=== PATIENT | female | born 1990 | race Caucasian/White ===

== ENCOUNTER → 2022-01-15 14:58 | Outpatient (BNVA) | payer MEDICAID, SELFPAY | PROVIDERS: PCP Nurse Practitioner Family; Visit Provider Nurse Practitioner Family | DX: N39.46 Mixed incontinence (principal); N39.0 Urinary tract infection, site not specified; R30.0 Dysuria | CPT/HCPCS: 81003; 87086 ==

== ENCOUNTER → 2022-05-13 12:23 | Outpatient (BNVA) | payer MEDICAID, SELFPAY | PROVIDERS: PCP Nurse Practitioner Family; Visit Provider Internal Medicine | DX: I47.1 Supraventricular tachycardia (principal) | CPT/HCPCS: 93005; 99203; 99204 ==

== ENCOUNTER → 2022-10-15 13:17 | Outpatient (BNVA) | payer MEDICAID, SELFPAY | PROVIDERS: PCP Nurse Practitioner Family; Visit Provider Internal Medicine | DX: I47.1 Supraventricular tachycardia (principal) | CPT/HCPCS: 93270 ==

== ENCOUNTER → 2022-11-11 14:27 | Outpatient (BNVA) | payer MEDICAID, SELFPAY | PROVIDERS: PCP Nurse Practitioner Family; Visit Provider Internal Medicine | DX: I47.1 Supraventricular tachycardia (principal); Z87.891 Personal history of nicotine dependence | CPT/HCPCS: 99214 ==

== ENCOUNTER 2022-12-09 05:25 | Outpatient (CLI) | payer MEDICAID, SELFPAY ==
[2022-12-06 10:35] LABS: Basophils # 0.1 10^3/uL (0.0-0.1); Basophils % 0.8 %; Eosinophils # 0.8 10^3/uL (0.0-0.8); Eosinophils % 10.1 %; Hematocrit 46.2 % (37.0-47.0); Hemoglobin 14.9 g/dL (11.5-15.3); Lymphocytes # 2.3 10^3/uL (0.8-4.8); Lymphocytes % 30.5 %; Mean Corpuscular HGB Conc 32.3 g/dL (30.0-36.0); Mean Corpuscular Volume 90.1 fl (81-99); Mean Platelet Volume 10.4 fL (7.4-10.4); Monocytes # 0.5 10^3/uL (0.2-0.9); Monocytes % 7.3 %; Nucleated Red Blood Cells % 0 %; Platelet Count 349 10^3/cmm (130-400); Red Blood Count 5.13 10^6/uL (4.1-5.3); Red Cell Distribution Width 11.8 % (12.1-15.1); White Blood Count 7.4 10^3/uL (4.0-10.0)
[2022-12-06 10:49] LABS: INR 1.02 (0.83-1.21); Prothrombin Time (Patient) 13.7 Seconds (12.0-15.1)
[2022-12-06 10:55] LABS: Anion Gap 16.4 (5-19); Blood Urea Nitrogen 5 mg/dL (6-20); Calcium 9.3 mg/dL (8.5-10.5); Carbon Dioxide 25 mmol/L (22-29); Chloride 104 mmol/L (98-107); Glomerular Filtration Rate 83.7 mL/min (90-130); Glucose 98 mg/dL (65-115); Osmolality Calculated 289 mOsm/kg (285-295); Potassium 4.4 mmol/L (3.5-5.1); Sodium 141 mmol/L (136-145)
[2022-12-09 06:24] VITALS: BP 135/79; PULSE 86; RESP 16; TEMP 37.1; O2SAT 97; BMI 34.9
[2022-12-09] MEDS: clindamycin 150 mg Capsule PO (07:00)
--- NOTE | 2022-12-09 07:11 | W.PM.OPSUD ---
Surgery/Procedure H&P Update DATE OF PROCEDURE: December 09, 2022 DATE H&P PERFORMED: 11/11/22 H&P UPDATE INFORMATION: I have reviewed H&P completed within last 30 days, I have examined patient prior to procedure and No changes to prior documentation PREOP DIAGNOSIS: tachy arhyhtmia PLANNED PROCEDURE: Operation Date: 12/09/22 07:00 Proposed Procedures p [id number] Loop Recorder Implantation I47.1(Not Applicable) - Amita Trevino MD
--- NOTE | 2022-12-09 07:40 | P.OP_ITS ---
Operative Report Date of procedure: December 09, 2022 Pre-op diagnosis: Preop Diagnosis tachy arhyhtmia Procedure: Date of Procedure: 12/09/2022 Name of the procedure: IMPLANTABLE VP CARE MANAGEMENT INSERTION LOCATION: Cardiac Catheterization Laboratory REFERRING PROVIDER: Dr. Summers PREOPERATIVE DIAGNOSIS: Recurrent episodes of tachyarrhythmia, previous ablation, difficulty in wearing the event monitor POSTOPERATIVE DIAGNOSIS: Same. ESTIMATED BLOOD LOSS: None COMPLICATIONS: None. BRIEF HISTORY: Patient presented with history of tachycardia, status post ablation he is presenting with recurrent episodes of palpitations. She had an event monitor which didn't reveal any significant arrhythmias to explain the symptoms. She also could not wear the event monitor. For further evaluation, an implantable traffic monitor specialist was recommended PROCEDURE: The procedure was explained to the patient in detail with the risks and benefits. The risk of bleeding, hematoma, vascular injury, infection and other concomitant complications were explained in detail. The patient understood this well and consented to proceed. The patient was brought to the Cardiac Dermatological Surgeon. The left side of the chest was cleaned and draped in a sterile fashion. 1% Xylocaine was used as local anesthetic agent. An incision was made in the left fourth intercostal space. Making use of the application device, the implantable traffic monitor specialist was inserted, subcutaneously. 5 minutes of manual pressure was applied, at the puncture site. The patient tolerated the procedure very well and there were no complications. No bleeding or hematoma. Steri-Strips were applied over the insertion site followed by a sterile dressing. Patient was sent back to the medical floor in stable condition IMPLANTED DEVICE Reveal LINQ Model number: [id number] Serial number: [id number] Make: Action Engine Parameters: Standard settings were applied( (tachycardia rate of 150 beats per minute , bradycardia rate of 40 beats per minute and a pause of 3 seconds ; symptom r ecording -4 episodes of 7.5 minutes. Atrial fibrillation detection was turned on- recording threshold of ->6 minutes. Sensitivity was kept at 0.035 mV) The R wave sensing was 0.39 mV.
[2022-12-09 08:18] VITALS: BP 127/88; PULSE 90; RESP 16; O2SAT 98
== END 2022-12-09 09:01 | disposition home or self-care (01) ==
PROVIDERS: PCP Nurse Practitioner Family; Visit Provider Internal Medicine Cardiovascular Disease
PROC: (CPT 33285; principal; 2022-12-09 07:00)
DX: I47.1 Supraventricular tachycardia (principal); Z87.891 Personal history of nicotine dependence
CPT/HCPCS: 33285; 36415; 80048; 85025; 85610; C1764; C1769

== ENCOUNTER → 2022-12-19 13:45 | Outpatient (BNVA) | payer MEDICAID, SELFPAY | PROVIDERS: PCP Nurse Practitioner Family; Visit Provider Nurse Practitioner Family | DX: I47.1 Supraventricular tachycardia (principal); Z95.818 Presence of other cardiac implants and grafts; Z87.891 Personal history of nicotine dependence | CPT/HCPCS: 99213 ==

== ENCOUNTER → 2023-07-21 13:59 | Outpatient (BNVA) | payer MEDICAID, SELFPAY | PROVIDERS: PCP Nurse Practitioner Family; Visit Provider Internal Medicine | DX: I47.1 Supraventricular tachycardia (principal); Z95.818 Presence of other cardiac implants and grafts | CPT/HCPCS: 99214 ==

== ENCOUNTER → 2023-10-09 15:17 | Outpatient (BNVA) | payer MEDICAID, SELFPAY | PROVIDERS: PCP Nurse Practitioner Family; Visit Provider Nurse Practitioner Family | DX: R07.9 Chest pain, unspecified (principal); N39.0 Urinary tract infection, site not specified | CPT/HCPCS: 36415; 80076; 81001; 85025; 99214 ==

== ENCOUNTER → 2024-01-20 15:04 | Outpatient (BNVA) | payer MEDICAID, SELFPAY | PROVIDERS: PCP Nurse Practitioner Family; Visit Provider Internal Medicine | DX: I47.19 Other supraventricular tachycardia (principal); Z87.891 Personal history of nicotine dependence | CPT/HCPCS: 99214 ==

== ENCOUNTER 2024-02-06 09:30 | Outpatient (CLI) | payer MEDICAID, SELFPAY ==
--- NOTE | 2024-02-06 09:38 | XR_ITS ---
WS: [id number] Examination: XR chest 2V* 02110 Reason for Exam: ACUTE BRONCHITIS Date: February 06, 2024 Comparison: None. Findings: The heart is normal in size. The mediastinum is not widened. There is no congestion or edema. There is no pleural effusion. Increased markings are suspected in the lingula. This may represent minimal infiltrate or atelectasis . A subcutaneous monitoring device is identified anteriorly. Impression: Minimal lingular infiltrate or atelectasis is suspected.
== END 2024-02-06 09:31 | disposition home or self-care (01) ==
LOC: RAD 09:31
PROVIDERS: PCP Nurse Practitioner Family; Visit Provider Nurse Practitioner Family
DX: J20.9 Acute bronchitis, unspecified (principal)
CPT/HCPCS: 71046; 93291

== ENCOUNTER 2024-04-18 14:33 | Inpatient (IN) | payer MEDICAID, SELFPAY ==
[2024-04-18 14:38] VITALS: BP 138/91; PULSE 143; RESP 20; TEMP 37.4; O2SAT 96; BMI 30.5
[2024-04-18 15:01] LABS: Add Urine Microscopic? NO; Charge for UA Resulting for Rev
[2024-04-18 15:06] LABS: Bilirubin Urine Neg (Negative); Blood Urine Neg (Negative); Glucose Urine UA Norm (Normal); Ketones Urine Negative (Negative); Leukocyte Esterase Urine Negative (Negative); Nitrate Urine Negative (Negative); Protein Urine Neg (Negative); Urine Appearance Clear (CLEAR); Urine Color Yellow (Yellow); Urobilinogen Urine Norm (Negative); pH Urine 7 (5-7)
--- NOTE | 2024-04-18 15:07 | ECG_ITS ---
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 Measurements Intervals [place] Rate: 106 P: 48 NC: 146 QRS: 45 QRSD: 79 T: 33 QT: 300 QTc: 399 Interpretive Statements SINUS TACHYCARDIA LOW QRS VOLTAGE IN PRECORDIAL LEADS [QRS DEFLECTION < 1.0 mV IN CHEST LEADS] PATTERN CONSISTENT WITH PULMONARY DISEASE No previous ECG available for comparison Electronically Signed On 04-18-2024 15:24:34 CDT by Brayan Summers M.D. [email or web address]
[2024-04-18 15:12] LABS: Amphetamines Screen Urine Negative (Negative); Barbiturates Screen Urine Negative (Negative); Benzodiazepines Screen Urine Negative (Negative); Cocaine Screen Urine Negative (Negative); Opiate Screen Urine Negative (Negative); PCP Screen Urine Negative (Negative); THC Screen Urine Negative (Negative)
[2024-04-18 15:24] LABS: HCG Qualitative Urine. Negative (Negative)
[2024-04-18 15:28] LABS: Basophils # 0.1 10^3/uL (0.0-0.1); Basophils % 0.7 %; Eosinophils # 0.7 10^3/uL (0.0-0.8); Eosinophils % 5.8 %; Hematocrit 41.9 % (36-47); Lymphocytes # 2.7 10^3/uL (0.8-4.8); Lymphocytes % 21.4 %; Mean Corpuscular HGB Conc 33.4 g/dL (30-55); Mean Corpuscular Volume 86.7 fl (85-98); Mean Platelet Volume 9.3 fL (7.4-10.4); Monocytes # 0.6 10^3/uL (0.2-0.9); Monocytes % 4.4 %; Neutrophils # 8.53 10^3/uL (1.8-7.7); Neutrophils % 67.3 %; Nucleated Red Blood Cells % 0 %; Platelet Count 393 10^3/cmm (157-399); Red Blood Count 4.83 10^6/uL (3.85-5.65); Red Cell Distribution Width 11.9 % (12.1-15.1); White Blood Count 12.67 10^3/uL (3.29-11.43)
--- NOTE | 2024-04-18 15:33 | W.ED.PSYCHS ---
HPI - Psych General: Chief Complaint: Psychiatric Symptoms Stated Complaint: MHE Time Seen by Provider: 04/18/24 14:48 History of Present Illness: Patient presents to the ER with having suicidal thoughts because she is sick of the highs and lows and she is sick of living. Patient does not have a plan. Patient has been inpatient before but not at [place]. Patient is currently on Seroquel Abilify and Wellbutrin and she says that these made a difference and she is talk to her doctor who is also worried about her and wanted her to come here to try to be put inpatient if possible. Patient is willing. Review of Systems General: Reports: 10 or more systems reviewed and unremarkable except in HPI and below PFSH ED PFSH: Medical History Recurrent UTI Mixed stress and urge urinary incontinence Family History Mother Heart disease Crohn's disease, colon Father Liver disease Social History Smoking and tobacco/nicotine status: former use of tobacco/nicotine Alcohol intake: current Alcohol intake frequency: few times a week Substance/Drug Use: never Marital status: Current occupational status: disabled Physical Exam Const: COMMON NORMALS: no acute distress, average body habitus, patient oriented x3, no limitations, healthy appearing, alert and well nourished HENMT: COMMON NORMALS: normocephalic, atraumatic, hearing grossly normal bilaterally, external ears normal, Normal external nose present and moist oral mucous membranes HEAD & SCALP: normocephalic and atraumatic NOSE: Normal external nose present EXTERNAL EAR: Yes external ears normal Neck/C-Spine: COMMON NORMALS: no JVD Chest: COMMONS NORMALS: normal inspection of the chest and normal palpation of entire chest wall Resp: COMMON NORMALS: normal respiratory effort, No retractions, No use of accessory muscles and clear to auscultation bilaterally AUSCULTATION: clear to auscultation bilaterally Cardio: COMMON NORMALS: no JVD, regular rate, regular rhythm, S1 normal heart sound present, S2 normal heart sound present, No gallops present (Cardio), No clicks present (Cardio), No murmurs present (Cardio) and No rub (Cardio) RATE: regular rate RHYTHM: regular rhythm HEART SOUNDS: S1 normal heart sound present and S2 normal heart sound present GI: COMMON NORMALS: Normal to inspection, nondistended, normoactive bowel sounds present, Soft to palpation, non-tender, No hepatosplenomegaly present and no masses PALPATION: Yes Soft to palpation and Yes No hepatosplenomegaly present Neuro: COMMON NORMALS: patient oriented x3 SENSORIUM/ORIENTATION: Yes alert Course Vital Signs: Vital signs: Vital Signs Temperature 99.3 F 04/18/24 14:38 Pulse Rate 143 H 04/18/24 14:38 Respiratory Rate 20 H 04/18/24 14:38 Blood Pressure 138/91 04/18/24 14:38 Pulse Oximetry 96 04/18/24 14:38 Oxygen Delivery Me thod Room Air 04/18/24 14:38 MDM - Psych Medical Decision Making Lab work was obtained, once the patient was cleared medically, Dr. Pickens was consulted who agreed to place the patient in MPU for further evaluation and treatment. Differential Diagnosis Likely suicidal ideation Medical Records I reviewed the patient's medical records. Lab Data I reviewed the patient's lab results. 04/18/24 15:23 04/18/24 15:23 Laboratory Results WBC 12.67 10^3/uL (3.29-11.43) H 04/18/24 15:23 RBC 4.83 10^6/uL (3.85-5.65) 04/18/24 15:23 Hgb 14.00 g/dL (11.27-16.99) 04/18/24 15:23 Hct 41.9 % (36-47) 04/18/24 15:23 MCV 86.7 fl (85-98) 04/18/24 15:23 MCH 29.0 pg (27-33) 04/18/24 15:23 MCHC 33.4 g/dL (30-55) 04/18/24 15:23 RDW 11.9 % (12.1-15.1) L 04/18/24 15:23 Plt Count 393 10^3/cmm (157-399) 04/18/24 15:23 MPV 9.3 fL (7.4-10.4) 04/18/24 15:23 Neut % (Auto) 67.3 % 04/18/24 15:23 Lymph % (Auto) 21.4 % 04/18/24 15:23 [place] % (Auto) 4.4 % 04/18/24 15:23 Eos % (Auto) 5.8 % 04/18/24 15:23 Baso % (Auto) 0.7 % 04/18/24 15:23 Neut # (Auto) 8.53 10^3/uL (1.8-7.7) H 04/18/24 15:23 Lymph # (Auto) 2.7 10^3/uL (0.8-4.8) 04/18/24 15:23 [place] # (Auto) 0.6 10^3/uL (0.2-0.9) 04/18/24 15:23 Eos # (Auto) 0.7 10^3/uL (0.0-0.8) 04/18/24 15:23 Baso # (Auto) 0.1 10^3/uL (0.0-0.1) 04/18/24 15:23 Nucleated RBC % (auto) 0 % 04/18/24 15:23 Nucleated RBCs # 0.0 /100WBC 04/18/24 15:23 Sodium 140 mmol/L (136-145) 04/18/24 15:23 Potassium 4.1 mmol/L (3.5-5.1) 04/18/24 15:23 Chloride 106 mmol/L (98-107) 04/18/24 15:23 Carbon Dioxide 25 mmol/L (22-29) 04/18/24 15:23 Anion Gap 13.1 (5-19) 04/18/24 15:23 BUN 7 mg/dL (6-20) 04/18/24 15:23 Creatinine 0.8 mg/dL (0.5-0.9) 04/18/24 15:23 GFR Calculation 83.1 mL/min (90-130) L 04/18/24 15:23 Glucose 103 mg/dL (65-115) 04/18/24 15:23 Calculated Osmolality 288 mOsm/kg (285-295) 04/18/24 15:23 Calcium 9.4 mg/dL (8.5-10.5) 04/18/24 15:23 Total Bilirubin 0.3 mg/dL (0.15-1.2) 04/18/24 15:23 AST 19 U/L (0-32) 04/18/24 15:23 ALT 23 U/L (0-33) 04/18/24 15:23 Alkaline Phosphatase 60 U/L (35-105) 04/18/24 15:23 Total Protein 7.4 g/dL (6.6-8.7) 04/18/24 15:23 Albumin 4.5 g/dL (3.5-5.2) 04/18/24 15:23 Globulin 2.9 g/dL (1.3-4.6) 04/18/24 15:23 TSH 0.90 uIU/mL (0.27-4.20) 04/18/24 15:23 HCG, Qual Negative (Negative) 04/18/24 14:57 Urine Color Yellow (Yellow) 04/18/24 14:57 Urine Appearance Clear (CLEAR) 04/18/24 14:57 Urine pH 7 (5-7) 04/18/24 14:57 Ur Specific [place] 1.010 (1.005-1.030) 04/18/24 14:57 Urine Protein Neg (Negative) 04/18/24 14:57 Urine Glucose (UA) Norm (Normal) 04/18/24 14:57 Urine Ketones Negative (Negative) 04/18/24 14:57 Urine Blood Neg (Negative) 04/18/24 14:57 Urine Nitrate Negative (Negative) 04/18/24 14:57 Urine Bilirubin Neg (Negative) 04/18/24 14:57 Urine Urobilinogen Norm mg/dL (Negative) 04/18/24 14:57 Ur Leukocyte Esterase Negative (Negative) 04/18/24 14:57 Salicylates < 0.3 mg/dL (3-10) L 04/18/24 15:23 Urine Opiates Screen Negative ng/mL (Negative) 04/18/24 14:57 Acetaminophen < 5.0 ug/mL (10-30) L 04/18/24 15:23 Ur Barbiturates Screen Negative ng/mL (Negative) 04/18/24 14:57 Ur Phencyclidine Scrn Negative ng/mL (Negative) 04/18/24 14:57 Ur Amphetamines Screen Negative ng/mL (Negative) 04/18/24 14:57 U Benzodiazepines Scrn Negative ng/mL (Negative) 04/18/24 14:57 Urine Cocaine Screen Negative ng/mL (Negative) 04/18/24 14:57 U Marijuana (THC) Screen Negative ng/mL (Negative) 04/18/24 14:57 Ethyl Alcohol < 10 mg/dL (0-10) 04/18/24 15:23 No radiology studies performed this visit EKG Data EKG 1: I personally reviewed and interpreted this EKG as follows: EKG interpretation date: 04/18/24 EKG interpretation time: 15:07 Interpretation: Ventricular rate 106 bpm, NH interval 146, QRS duration 79, QTc of 352, sinus tachycardia Discharge Plan Discharge Patient Disposition: Admitted As Inpatient Clinical Impression: Suicidal ideation Condition: Stable Coding Level of Care Code ED Gang 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
[2024-04-18 15:59] LABS: Alanine Aminotransferase 23 U/L (0-33); Albumin Level 4.5 g/dL (3.5-5.2); Alkaline Phosphatase 60 U/L (35-105); Anion Gap 13.1 (5-19); Aspartate Amino Transferase 19 U/L (0-32); Blood Urea Nitrogen 7 mg/dL (6-20); Calcium 9.4 mg/dL (8.5-10.5); Carbon Dioxide 25 mmol/L (22-29); Chloride 106 mmol/L (98-107); Creatinine Clr Calc Pharmacy 92.4381; Globulin 2.9 g/dL (1.3-4.6); Glomerular Filtration Rate 83.1 mL/min (90-130); Glucose 103 mg/dL (65-115); Osmolality Calculated 288 mOsm/kg (285-295); Potassium 4.1 mmol/L (3.5-5.1); Sodium 140 mmol/L (136-145); Total Bilirubin 0.3 mg/dL (0.15-1.2); Total Protein 7.4 g/dL (6.6-8.7)
[2024-04-18 16:08] LABS: Acetaminophen < 5.0 ug/mL (10-30); Alcohol Level < 10 mg/dL (0-10); Salicylate < 0.3 mg/dL (3-10)
[2024-04-18 17:59] VITALS: PULSE 89; O2SAT 99
--- NOTE | 2024-04-18 18:18 | PC.NURSE ---
Report taken from nurseKailee. Stated patient is has si with no plan and that they have not had to give her medications since she has been in the emergency department. She is not on a 96 hour hold and is voluntary. Gave vitals signs as follows: temp of 99.3, HR of 89, Resp of 20, BP of 138/91, and O2 of 99 on room air.
[2024-04-18 18:26] VITALS: BP 128/89; PULSE 81; RESP 16; TEMP 37; O2SAT 96
[2024-04-18 19:58] VITALS: BP 114/78; PULSE 81; RESP 17; TEMP 36.7; O2SAT 95
[2024-04-18] MEDS: metoprolol tartrate 25 mg Tablet PO (20:48)
[2024-04-18] MEDS: quetiapine 25 mg Tablet 50 MG PO (20:48)
[2024-04-18] MEDS: loratadine 10 mg Tablet PO (20:49)
[2024-04-18 21:37] VITALS: PULSE 71; RESP 17; O2SAT 95
--- NOTE | 2024-04-18 23:49 | PC.NURSE ---
CPAP removed from the room. The patient did not like the machine so she stated she did not want to use it.
[2024-04-19 00:23] VITALS: PULSE 72; RESP 14; O2SAT 96
--- NOTE | 2024-04-19 02:34 | PC.NURSE ---
Patient decided this time she for sure did not want the CPAP. supervisor cartography was present.
--- NOTE | 2024-04-19 04:53 | P.NPUHP_ITS ---
Providers/Chief Complaint 2 Admitting Physician: Stefan Pickens MD Primary Care Provider: LISA Sorto Chief Complaint: MHE HPI NPU History of Present Illness Tata Moore is a 33 year old female who presented to the emergency department with the following report: Chief Complaint: Psychiatric Symptoms Stated Complaint: MHE Time Seen by Provider: 04/18/24 14:48 History of Present Illness: Patient presents to the ER with having suicidal thoughts because she is sick of the highs and lows and she is sick of living. Patient does not have a plan. Patient has been inpatient before but not at [place]. Patient is currently on Seroquel Abilify and Wellbutrin and she says that these made a difference and she is talk to her doctor who is also worried about her and wanted her to come here to try to be put inpatient if possible. Patient is willing. He was admitted to the neuropsychiatric unit for definitive treatment of those issues. She presents today unknown to the system or to this ad copy writer reporting: Chief complaint Patient reports experiencing extreme ups and downs , with high points of feeling invincible and low points of suicidal ideation. Reports that current medications (Wellbutrin, Abilify, and Seroquel) do not seem to be effective. History of the present complaint The patient, born on 1990, reported experiencing significant mood swings, characterized by extreme highs and lows. The patient described the highs as feeling invincible but not lasting more than five hours, while the lows could last for hours or even days. The most recent low period lasted for two days and was severe enough to prompt the patient to seek hospitalization. The patient also reported having more low periods than high ones. The patient has been taking Wellbutrin for two years, Abilify for two months, and Seroquel for a year but expressed dissatisfaction with these medications, stating they do not seem to work. However, the patient did mention that Abilify seems to work the best out of the three. The patient has also tried other medications in the past, including Prozac, Effexor, Zoloft, Seroquel, Respidone, and [place]. The patient reported that [place] worked the best but was discontinued when they moved and their new doctor decided to change it. The patient reported having intrusive thoughts and experiencing significant sleep disturbances. They also mentioned having a history of self-harm behaviors such as banging their head and pulling out their hair. These behaviors started over 20 years ago. The patient also reported having a history of bulimia. The patient described experiencing nightmares every night and having flashbacks triggered by certain events or names. They also reported having obsessive- compulsive tendencies, such as needing everything to be perfect and getting anxious if things are not in order. The patient's symptoms reportedly started after their biological father left them about 22 years ago. However, they mentioned that their mother observed signs of bipolar disorder in them even before this event. The patient has been in therapy for 18 years but stopped seeing their therapist a few days before hospitalization because they felt better during a high period. The patient has been hospitalized multiple times in psychiatric facilities, with the last time being 10 years ago. The patient has a daughter who is nine years old and is a single parent with sole custody. They reported that raising their daughter alone has been stressful and traumatic at times. The patient has a history of substance abuse, including heavy alcohol use which they used as self-medication. However, they have been sober for a year and a half now. They also used to smoke marijuana but quit 15 years ago due to fear of legal consequences. The patient has been on disability their whole life and lives with their daughter in an apartment. They have never been in retirement but have had multiple traumatic experiences both within and outside their home environment. In terms of physical health, the patient reported having heart problems and an implantable heart monitor. They also had their gallbladder removed in the past and occasionally experience liver failure due to a past suicide attempt by overdose. Overall, the patient described their mood as very good during the consultation and denied any current thoughts of self-harm or harm towards others. Mental health history Patient has a history of multiple psychiatric hospitalizations, with the last one occurring 10 years ago. Has been in therapy for 18 years and has tried numerous medications including Prozac, Effexor, Zoloft, Seroquel, Respidone, and [place]. Reports that none of these medications seemed to work, with the exception of [place], which was the most effective but was discontinued by a previous doctor. Patient has a history of self-harm, including banging head and pulling out hair. Reports a history of bulimia. Social history Patient quit smoking tobacco five years ago after a pack-a-day habit. Reports a history of heavy alcohol use, but has been sober for a year and a half. Used to use cannabis but quit 15 years ago. Patient is a single mother with sole custody of a [id number] daughter. Has been on disability her whole life. Meds NPU Home Medications Medication Instructions Recorded Confirmed Last Taken Type bupropion HCl 100 mg tablet,12 hr 100 mg PO BID 12/06/22 04/18/24 12/08/22 21:00 History sustained-release (Wellbutrin SR) loratadine 10 mg tablet (Claritin) 10 mg PO DAILY 07/21/23 04/18/24 Unknown History metoprolol tartrate 25 mg tablet 25 mg PO TID #270 tabs 10/09/23 04/18/24 Unknown Rx Allergies Allergy/AdvReac Type Severity Reaction Status Date / Time cephalexin Allergy hives, Verified 04/18/24 14:46 skin rash fluoxetine Allergy psychotic Verified 04/18/24 14:46 breakdown PFSH NPU 2 PFSH: Medical History Recurrent UTI Mixed stress and urge urinary incontinence Family History Mother Heart disease Crohn's disease, colon Father Liver disease Social History Smoking and tobacco/nicotine status: former use of tobacco/nicotine Alcohol intake: current Alcohol intake frequency: few times a week Substance/Drug Use: never Marital status: Current occupational status: disabled Mental Status Exam 2 MSE Comments: This is an obese white female in hospital scrubs with adequate grooming and eye contact. No abnormal movements except for mild psychomotor retardation. Cooperative with exam in mild distress. Speech was slightly decreased rate and volume. Mood described as up-and-down with periods of depression followed by which she describes as high highs, affect slightly subdued. Thought process organized. Thought content: Patient denies suicidal or homicidal ideations, there were no delusions reported or noted, she denied any auditory or visual hallucinations. Patient reports experiencing intrusive thoughts, anxiety, and mood swings. Reports periods of depression lasting up to a week, during which she experiences sleep disturbances, poor appetite, and feelings of worthlessness. Reports having nightmares and flashbacks, and has symptoms of OCD, including a need for order and perfection. Denies any hallucinations or thoughts of violence towards others. Attention and concentration appeared intact and memory was mostly reliable but none were formally tested. She is alert and oriented x 3. Insight and judgment are limited impulse control limited. Vitals/I&O/Wt Last Vital Signs Temp 98.1 F 04/18/24 19:58 Pulse 72 04/19/24 00:23 Resp 17 04/18/24 19:58 BP 114/78 04/18/24 19:58 Pulse Ox 96 04/19/24 00:23 O2 Del Method Room Air 04/18/24 19:58 FiO2 21 04/19/24 00:23 Weight last 48 hrs Weight 73.301 kg Data NPU 04/18/24 15:23 04/18/24 15:23 A&P Assessment and plan (1) Suicidal ideation: (2) PTSD (post-traumatic stress disorder): (3) Major depressive disorder: Plan This is a 33-year-old white female with a long history of mental health history and treatment with significant issues with trauma anxiety and which she describes as bipolar which is represented by very quick/rapid mood swings reporting these mood swings, periods of depression, and periods of feeling invincible. Also exhibits symptoms of OCD and has a history of self-harm and bulimia. Patient's current medications do not seem to be effectively managing her symptoms per her report. 1. Continue current medication. Will switch to Wellbutrin XL 300 mg p.o. every morning, increase Abilify to 30 mg p.o. daily, discontinue Wellbutrin SR and continue remainder of medication. 2.? Continue every 15 minute checks for safety. 3.? Encourage individual, group and milieu therapies. 4.? Encourage sober living treatment after discharge at the highest level of care to which she is willing to commit. Involuntary Hold Information 2 96 Hour Hold: 96 Hour Involuntary Admission: No Attestations NPU 2 Medical Necessity Statement*: Inpatient hospitalization is medically necessary and the clinically appropriate intervention at this time. We will monitor medications and make changes as indicated. Patient will be in the hospital for over two midnights. Likely length of stay 4-6 days. Coding Level of Care Code Acute Code for [facility] Diagnoses Suicidal ideation R45.851 PTSD (post-traumatic stress disorder) F43.10 Major depressive disorder F32.9
[2024-04-19 06:00] VITALS: BP 92/63; PULSE 83; RESP 16; TEMP 36.7; O2SAT 97
[2024-04-19] MEDS: buPROPion SR (12 HR) 100 mg Tablet PO (08:29)
[2024-04-19] MEDS: metoprolol tartrate 25 mg Tablet PO ×3 (08:29→20:41)
[2024-04-19] MEDS: ARIPiprazole 10 mg Tablet 20 MG PO (08:29)
[2024-04-19] MEDS: quetiapine 25 mg Tablet 50 MG PO ×2 (08:29→20:42)
[2024-04-19 14:00] VITALS: BP 92/63; PULSE 89; RESP 16; TEMP 36.8; O2SAT 96
[2024-04-19] MEDS: buPROPion SR (12 HR) 100 mg Tablet 200 MG PO (17:27)
--- NOTE | 2024-04-19 18:06 | PC.NURSE ---
STAFF PERFORMED RANDOM ROOM CHECK. NO OUTSIDE CONTRABAND WAS FOUND IN PT ROOM OR AREA. PT WAS COOPERATIVE WITH ROOM SEARCH.
[2024-04-19] MEDS: loratadine 10 mg Tablet PO (20:42)
[2024-04-19] MEDS: hyDROXYzine 25 mg Capsule 50 MG PO (21:06)
[2024-04-19 21:12] VITALS: BP 104/70; PULSE 77; RESP 18; TEMP 36.8; O2SAT 95
[2024-04-20 06:00] VITALS: BP 127/87; PULSE 87; RESP 18; TEMP 36.7; O2SAT 98
[2024-04-20] MEDS: quetiapine 25 mg Tablet 50 MG PO ×2 (07:38→20:35)
[2024-04-20] MEDS: ARIPiprazole 30 mg Tablet PO (07:38)
[2024-04-20] MEDS: ibuprofen 600 mg Tablet PO (07:39)
[2024-04-20] MEDS: metoprolol tartrate 25 mg Tablet PO ×3 (07:39→20:35)
[2024-04-20] MEDS: buPROPion XL (24 HR) 300 mg Tablet PO (07:39)
[2024-04-20 14:00] VITALS: BP 97/72; PULSE 71; RESP 16; TEMP 36.6; O2SAT 98
--- NOTE | 2024-04-20 19:21 | W.PM.NPUPNS ---
Subjective NPU Subjective: Patient presented today reporting that she is doing much better with the changes in the medication. She reports that that is what she really needed to help balance her situation. She reports she is talk to the social work team and they have worked on strategies for outpatient services and follow-up. She denied any side effects of the medication and reports wanting to discharge sooner rather than later. Mental Status Exam MSE Comments: This is an obese white female in hospital scrubs with adequate grooming and eye contact. No abnormal movements except for mild psychomotor retardation. Cooperative with exam in mild distress. Speech was slightly decreased rate and volume. Mood described as better with med changes, affect slightly subdued. Thought process organized. Thought content: Patient denies suicidal or homicidal ideations, there were no delusions reported or noted, she denied any auditory or visual hallucinations. Patient reports history of intrusive thoughts, anxiety, and mood swings. Reports periods of depression lasting up to a week, during which she experiences sleep disturbances, poor appetite, and feelings of worthlessness. Reports having nightmares and flashbacks, and has symptoms of OCD, including a need for order and perfection. Denies any hallucinations or thoughts of violence towards others. Attention and concentration appeared intact and memory was mostly reliable but none were formally tested. She is alert and oriented x 3. Insight and judgment are limited impulse control limited. Vitals/I&O/Wt Last Vital Signs Temp 97.8 F 04/20/24 19:44 Pulse 76 04/20/24 19:44 Resp 18 04/20/24 19:44 BP 109/77 04/20/24 19:44 Pulse Ox 97 04/20/24 19:44 O2 Del Method Room Air 04/20/24 19:44 FiO2 21 04/19/24 00:23 Data NPU 04/18/24 15:23 04/18/24 15:23 A&P Assessment and plan (1) Suicidal ideation: (2) PTSD (post-traumatic stress disorder): (3) Major depressive disorder: Plan This is a 33-year-old white female with a long history of mental health history and treatment with significant issues with trauma anxiety and which she describes as bipolar which is represented by very quick/rapid mood swings reporting these mood swings, periods of depression, and periods of feeling invincible. Also exhibits symptoms of OCD and has a history of self-harm and bulimia. Patient's current medications do not seem to be effectively managing her symptoms per her report. 1. Continue current medication. Will switch to Wellbutrin XL 300 mg p.o. every morning, increase Abilify to 30 mg p.o. daily, discontinue Wellbutrin SR and continue remainder of medication. 2.? Continue every 15 minute checks for safety. 3.? Encourage individual, group and milieu therapies. 4.? Encourage sober living treatment after discharge at the highest level of care to which she is willing to commit. Involuntary Hold Information 96 Hour Hold: 96 Hour Involuntary Admission: No Attestations NPU Medical Necessity Statement*: Inpatient hospitalization is medically necessary and the clinically appropriate intervention at this time. We will monitor medications and make changes as indicated. Likely length of stay 2-4 days. Coding Level of Care Code Acute Code for [facility] Fwd Diagnoses Suicidal ideation R45.851 PTSD (post-traumatic stress disorder) F43.10 Major depressive disorder F32.9
[2024-04-20 19:44] VITALS: BP 109/77; PULSE 76; RESP 18; TEMP 36.6; O2SAT 97
[2024-04-20] MEDS: loratadine 10 mg Tablet PO (20:35)
[2024-04-20] MEDS: hyDROXYzine 25 mg Capsule 50 MG PO (20:35)
[2024-04-21 06:00] VITALS: BP 101/70; PULSE 70; RESP 18; TEMP 36.6; O2SAT 97
[2024-04-21] MEDS: fluticasone nasal spray 16gm Btl 2 SPRAY NASAL (08:49)
[2024-04-21] MEDS: ARIPiprazole 30 mg Tablet PO (08:50)
[2024-04-21] MEDS: buPROPion XL (24 HR) 300 mg Tablet PO (08:50)
[2024-04-21] MEDS: metoprolol tartrate 25 mg Tablet PO (08:52)
--- NOTE | 2024-04-21 11:03 | W.PM.NPUDCS ---
Diagnoses at Discharge Discharge Diagnosis (1) Suicidal ideation: Status: Acute (2) PTSD (post-traumatic stress disorder): Status: Acute (3) Major depressive disorder: Status: Acute Reason for Visit Reason for Visit: MHE Involuntary Hold Information 96 Hour Hold: 96 Hour Involuntary Admission: No Mental Status Exam MSE Comments: This is an obese white female in hospital scrubs with adequate grooming and eye contact. No abnormal movements except for mild psychomotor retardation. Cooperative with exam in mild distress. Speech was slightly decreased rate and volume. Mood described as better with med changes, affect slightly subdued. Thought process organized. Thought content: Patient denies suicidal or homicidal ideations, there were no delusions reported or noted, she denied any auditory or visual hallucinations. Patient reports history of intrusive thoughts, anxiety, and mood swings. Reports periods of depression lasting up to a week, during which she experiences sleep disturbances, poor appetite, and feelings of worthlessness. Reports having nightmares and flashbacks, and has symptoms of OCD, including a need for order and perfection. Denies any hallucinations or thoughts of violence towards others. Attention and concentration appeared intact and memory was mostly reliable but none were formally tested. She is alert and oriented x 3. Insight and judgment are limited impulse control limited. Discharge Data Studies Completed and Pending: Laboratory Results WBC 12.67 10^3/uL (3. 29-11.43) H 04/18/24 15:23 RBC 4.83 10^6/uL (3.8 5-5.65) 04/18/24 15:23 Hgb 14.00 g/dL (11.27 -16.99) 04/18/24 15:23 Hct 41.9 % (36-47) 04/18/24 15:23 MCV 86.7 fl (85-98) 04/18/24 15:23 MCH 29.0 pg (27-33) 04/18/24 15:23 MCHC 33.4 g/dL (30-55) 04/18/24 15:23 RDW 11.9 % (12.1-15.1 ) L 04/18/24 15:23 Plt Count 393 10^3/cmm (157 -399) 04/18/24 15:23 MPV 9.3 fL (7.4-10.4) 04/18/24 15:23 Neut % (Auto) 67.3 % 04/18/24 15:23 Lymph % (Auto) 21.4 % 04/18/24 15:23 [place] % (Auto) 4.4 % 04/18/24 15:23 Eos % (Auto) 5.8 % 04/18/24 15:23 Baso % (Auto) 0.7 % 04/18/24 15:23 Neut # (Auto) 8.53 10^3/uL (1.8 -7.7) H 04/18/24 15:23 Lymph # (Auto) 2.7 10^3/uL (0.8- 4.8) 04/18/24 15:23 [place] # (Auto) 0.6 10^3/uL (0.2- 0.9) 04/18/24 15:23 Eos # (Auto) 0.7 10^3/uL (0.0- 0.8) 04/18/24 15:23 Baso # (Auto) 0.1 10^3/uL (0.0- 0.1) 04/18/24 15:23 Nucleated RBC % (a uto) 0 % 04/18/24 15: Nucleated RBCs # 0.0 /100WBC 04/18/24 15:23 Sodium 140 mmol/L (136-1 45) 04/18/24 15:23 Potassium 4.1 mmol/L (3.5-5 .1) 04/18/24 15:23 Chloride 106 mmol/L (98-10 7) 04/18/24 15:23 Carbon Dioxide 25 mmol/L (22-29) 04/18/24 15:23 Anion Gap 13.1 (5-19) 04/18/24 15:23 BUN 7 mg/dL (6-20) 04/18/24 15:23 Creatinine 0.8 mg/dL (0.5-0. 9) 04/18/24 15:23 GFR Calculation 83.1 mL/min (90-1 30) L 04/18/24 15:23 Glucose 103 mg/dL (65-115 ) 04/18/24 15:23 Calculated Osmolal ity 288 mOsm/kg (285- 295) 04/18/24 15:23 Calcium 9.4 mg/dL (8.5-10 .5) 04/18/24 15:23 Total Bilirubin 0.3 mg/dL (0.15-1 .2) 04/18/24 15:23 AST 19 U/L (0-32) 04/18/24 15:23 ALT 23 U/L (0-33) 04/18/24 15:23 Alkaline Phosphata se 60 U/L (35-105) 04/18/24 15:23 Total Protein 7.4 g/dL (6.6-8.7 ) 04/18/24 15:23 Albumin 4.5 g/dL (3.5-5.2 ) 04/18/24 15:23 Globulin 2.9 g/dL (1.3-4.6 ) 04/18/24 15:23 TSH 0.90 uIU/mL (0.27 -4.20) 04/18/24 15:23 HCG, Qual Negative (Negati ve) 04/18/24 14:57 Urine Color Yellow (Yellow) 04/18/24 14:57 Urine Appearance Clear (CLEAR) 04/18/24 14:57 Urine pH 7 (5-7) 04/18/24 14:57 Ur Specific Gravit y 1.010 (1.005-1.0 30) 04/18/24 14:57 Urine Protein Neg (Negative) 04/18/24 14:57 Urine Glucose (UA) Norm (Normal) 04/18/24 14:57 Urine Ketones Negative (Negati ve) 04/18/24 14:57 Urine Blood Neg (Negative) 04/18/24 14:57 Urine Nitrate Negative (Negati ve) 04/18/24 14:57 Urine Bilirubin Neg (Negative) 04/18/24 14:57 Urine Urobilinogen Norm mg/dL (Negat yo) 04/18/24 14:57 Ur Leukocyte Eileen ase Negative (Negati ve) 04/18/24 14:57 Salicylates < 0.3 mg/dL (3-10 ) L 04/18/24 15:23 Urine Opiates Scre en Negative ng/mL (N egative) 04/18/24 14:57 Acetaminophen < 5.0 ug/mL (10-3 0) L 04/18/24 15:23 Ur Barbiturates Sc reen Negative ng/mL (N egative) 04/18/24 14:57 Ur Phencyclidine S crn Negative ng/mL (N egative) 04/18/24 14:57 Ur Amphetamines Sc reen Negative ng/mL (N egative) 04/18/24 14:57 U Benzodiazepines Scrn Negative ng/mL (N egative) 04/18/24 14:57 Urine Cocaine Scre en Negative ng/mL (N egative) 04/18/24 14:57 U Marijuana (THC) Screen Negative ng/mL (N egative) 04/18/24 14:57 Ethyl Alcohol < 10 mg/dL (0-10) 04/18/24 15:23 Vitals: Last Vital Signs Temp 97.8 F 04/21/24 06:00 Pulse 70 04/21/24 06:00 Resp 18 04/21/24 06:00 BP 101/70 04/21/24 06:00 Pulse Ox 97 04/21/24 06:00 O2 Del Method Room Air 04/20/24 19:44 FiO2 21 04/19/24 00:23 Discharge Plan Discharge Patient Disposition: Home Condition: Stable Prescriptions: New hydroxyzine pamoate 25 mg Capsule 50 mg PO Q6H PRN (Reason: Anxiety) 30 Days Qty: 120 1RF aripiprazole 30 mg Tablet 30 mg PO DAILY 30 Days Qty: 30 1RF bupropion HCl 300 mg Tablet Extended Release 24 Hr 300 mg PO DAILY 30 Days Qty: 30 1RF quetiapine 50 mg tablet 50 mg PO 0900,2100 30 Days Qty: 60 1RF Continued loratadine [Claritin] 10 mg tablet 10 mg PO DAILY metoprolol tartrate 25 mg tablet 25 mg PO TID Qty: 270 3RF Discontinued bupropion HCl [Wellbutrin SR] 100 mg tablet sustained-release 12 hr 100 mg PO BID Discharge Orders: Discharge Order (Routine); Ordered 04/21/24 Ordered By: Stefan Pickens Referrals: [facility] [Outside] Kathleen Miller FNP [Primary Care Provider] - Discharge Diet: Regular Discharge Activity: Resume usual activity Patient Instructions: Opioid Safety, Pain Management Discharge Attestations NPU Time Spent in Discharge Care*: less than 30 min Specific Discharge Activities: Specific discharge activities: educating patient, discussing with human services case manager/social workers/dc planners, documenting/other paperwork and evaluating patient/reviewing data Coding Level of Care Code Acute Code for [facility] Fwd Diagnoses Suicidal ideation R45.851 PTSD (post-traumatic stress disorder) F43.10 Major depressive disorder F32.9
[2024-04-21 11:50] VITALS: BP 101/70; PULSE 70; RESP 18; TEMP 36.6; O2SAT 97
== END 2024-04-21 12:30 | disposition home or self-care (01) | DRG 881 ==
LOC: ER 16:41 → NP 18:10
PROVIDERS: Admitting Provider Psychiatry & Neurology Psychiatry; Emergency Provider Emergency Medicine; PCP Nurse Practitioner Family; Visit Provider Psychiatry & Neurology Psychiatry
DX: F32.9 Major depressive disorder, single episode, unspecified (principal); R45.851 Suicidal ideations; F50.2 Bulimia nervosa; Z87.891 Personal history of nicotine dependence; F43.10 Post-traumatic stress disorder, unspecified; F42.9 Obsessive-compulsive disorder, unspecified; Z68.30 Body mass index [BMI] 30.0-30.9, adult; Z91.52 Personal history of nonsuicidal self-harm
CPT/HCPCS: 36415; 80053; 80306; 80307; 81003; 81025; 84443; 85025; 93005; 94660; 97150; 97165; 99285

== ENCOUNTER → 2024-09-03 11:03 | Outpatient (BNVA) | payer MEDICAID, SELFPAY | PROVIDERS: PCP Nurse Practitioner Family; Visit Provider Internal Medicine | DX: Z45.018 Encounter for adjustment and management of other part of cardiac pacemaker (principal); Z53.9 Procedure and treatment not carried out, unspecified reason | CPT/HCPCS: 93291 ==

== ENCOUNTER → 2024-10-20 12:23 | Outpatient (BNVA) | payer MEDICAID, SELFPAY | PROVIDERS: PCP Nurse Practitioner Family; Visit Provider Internal Medicine | DX: I47.19 Other supraventricular tachycardia (principal); Z87.891 Personal history of nicotine dependence | CPT/HCPCS: 99214 ==

== ENCOUNTER → 2024-10-26 10:35 | Outpatient (BNVA) | payer MEDICAID, SELFPAY | PROVIDERS: PCP Nurse Practitioner Family; Visit Provider Internal Medicine | DX: Z45.09 Encounter for adjustment and management of other cardiac device (principal) | CPT/HCPCS: 93298 ==

== ENCOUNTER → 2025-03-04 11:27 | Outpatient (BNVA) | payer MEDICAID, SELFPAY | PROVIDERS: PCP Nurse Practitioner Family; Visit Provider Internal Medicine | DX: Z45.09 Encounter for adjustment and management of other cardiac device (principal) | CPT/HCPCS: 93291 ==

== ENCOUNTER 2025-03-21 18:02 | Emergency (ER) | payer MEDICAID, SELFPAY ==
--- NOTE | 2025-03-21 18:03 | XRR_ITS ---
PROCEDURE INFORMATION: Exam: XR Chest Exam date and time: 03/21/2025 6:24 PM Age: 34 years old Clinical indication: Pain; Chest pressure; Prior surgery; Surgery date: 6+ months; Surgery type: Loop recorder; Additional info: Cp TECHNIQUE: Imaging protocol: Radiologic exam of the chest. Views: 1 view. COMPARISON: CR XR chest 2V* [id number] 02/06/2024 9:43 AM FINDINGS: Tubes, catheters and devices: Loop recorder device noted in the left chest wall. Lungs: Unremarkable. No consolidation. Pleural spaces: Unremarkable. No pleural effusion. No pneumothorax. Heart/Mediastinum: Unremarkable. No cardiomegaly. Bones/joints: Unremarkable. XR/XR chest 1V portable [id number] IMPRESSION: No acute findings.
[2025-03-21 18:07] VITALS: BP 141/85; PULSE 111; TEMP 37.1; O2SAT 97; BMI 34.0
--- NOTE | 2025-03-21 18:11 | ECG_ITS ---
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 Measurements Intervals Roberts Rate: 98 P: 25 PA: 158 QRS: 35 QRSD: 81 T: 14 QT: 304 QTc: 389 Interpretive Statements SINUS RHYTHM POSSIBLE ANTERIOR MYOCARDIAL INFARCTION , OF INDETERMINATE AGE [30 ms Q WAVE IN V3/V4, OR R < 0.2 mV IN V4] Nonspecific T wave changes Compared to ECG 04/18/2024 15:07:09 Myocardial infarct finding now present Sinus tachycardia no longer present Electronically Signed On 03-22-2025 06:20:17 CDT by Amita Trevino M.D. [id number]
[2025-03-21 18:49] LABS: Basophils # 0.1 10^3/uL (0.0-0.1); Basophils % 0.7 %; Eosinophils # 0.8 10^3/uL (0.0-0.8); Eosinophils % 7.1 %; Hematocrit 46.8 % (36-47); Lymphocytes # 4.1 10^3/uL (0.8-4.8); Lymphocytes % 37.4 %; Mean Corpuscular HGB Conc 32.9 g/dL (30-55); Mean Corpuscular Volume 85.1 fl (85-98); Monocytes # 0.6 10^3/uL (0.2-0.9); Monocytes % 5.1 %; Neutrophils # 5.38 10^3/uL (1.8-7.7); Neutrophils % 49.2 %; Nucleated Red Blood Cells % 0 %; Platelet Count 395 10^3/cmm (157-399); Red Cell Distribution Width 12.3 % (12.1-15.1); White Blood Count 10.94 10^3/uL (3.29-11.43)
[2025-03-21 19:05] LABS: Alanine Aminotransferase 26 U/L (0-33); Albumin Level 4.8 g/dL (3.5-5.2); Alkaline Phosphatase 59 U/L (35-105); Anion Gap 18.1 (5-19); Aspartate Amino Transferase 22 U/L (0-32); Blood Urea Nitrogen 5 mg/dL (6-20); Calcium 9.7 mg/dL (8.5-10.5); Carbon Dioxide 20 mmol/L (22-29); Chloride 107 mmol/L (98-107); Globulin 2.5 g/dL (1.3-4.6); Glomerular Filtration Rate 72.1 mL/min (90-130); Glucose 99 mg/dL (65-115); HCG, Serum Qual Negative (Negative); Lipase 39 U/L (13-60); Osmolality Calculated 289 mOsm/kg (285-295); Potassium 4.1 mmol/L (3.5-5.1); Sodium 141 mmol/L (136-145); Total Bilirubin 0.5 mg/dL (0.15-1.2); Total Protein 7.3 g/dL (6.6-8.7); Troponin(5th) Baseline < 6 ng/L (0-10)
[2025-03-21 19:36] LABS: D Dimer 0.33 ug/mLFEU (0-0.59)
--- NOTE | 2025-03-21 20:15 | ECG_ITS ---
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 Measurements Intervals [place] Rate: 87 P: 27 NM: 165 QRS: 30 QRSD: 85 T: 8 QT: 326 QTc: 393 Interpretive Statements SINUS RHYTHM POSSIBLE ANTERIOR MYOCARDIAL INFARCTION , OF INDETERMINATE AGE [30 ms Q WAVE IN V3/V4, OR R < 0.2 mV IN V4] diffuse nonspecific T wave changes Compared to ECG 03/21/2025 18:11:41 No significant changes Electronically Signed On 03-22-2025 06:36:08 CDT by Amita Trevino M.D. [id number] [id number]
[2025-03-21 20:40] VITALS: BP 126/85; PULSE 86; RESP 18; O2SAT 97
--- NOTE | 2025-03-21 20:47 | W.ED.CHESTPA ---
HPI - Chest Pain General: Chief Complaint: Chest Pain Stated Complaint: Cp on and off for Five days Time Seen by Provider: 03/21/25 19:07 Source: patient Mode of arrival: ambulatory Limitations: no limitations History of Present Illness: 34-year-old female who states she follows with cardiology due to issues with tachycardia she states they recently decreased her metoprolol from 25 mg to 12.5 mg twice daily. States that since then she been having some tachycardia some chest tightness and not feeling right she denies any worse improving factors. Associated symptoms: Reports palpitations; Deny abdominal pain, fever(s), nausea or vomiting Related Data Home Medications ?Medication ?Instructions ?Recorded ?Confirmed loratadine 10 mg tablet (Claritin) 10 mg PO DAILY 07/21/23 10/20/24 Previous Rx's ?Medication ?Instructions ?Recorded hydroxyzine pamoate 50 mg capsule 50 mg PO TID PRN Anxiety 30 days 09/03/24 #60 caps nitroglycerin 0.4 mg sublingual See Rx Instructions .Route 11/15/24 tablet .COMPLEX #25 tabs bupropion HCl 300 mg 24 hr tablet, 300 mg PO DAILY 30 days #30 tabs 12/27/24 extended release buspirone 10 mg tablet 10 mg PO TID PRN anxiety #90 tabs 12/27/24 metoprolol tartrate 25 mg tablet 12.5 mg (1/2 x 25 mg) PO BID #90 03/16/25 tabs Allergies Allergy/AdvReac Type Severity Reaction Status Date / Time cephalexin Allergy hives, Verified 03/21/25 18:16 skin rash fluoxetine Allergy psychotic Verified 03/21/25 18:16 breakdown strawberry Allergy rash, Verified 03/21/25 18:16 hives, throat swelling succinylcholine Allergy Unknown Verified 03/21/25 18:17 Review of Systems Const: Denies: fever(s), chills, body aches or change in appetite ENMT: Denies: throat pain or dental pain Card: Reports: chest pain and palpitations GI: Denies: abdominal pain, nausea, vomiting or diarrhea Musc: Denies: neck pain or back pain Skin/Breast: Denies: rash Neuro: Denies: headache(s) PFSH ED PFSH: Medical History Psychiatric care Recurrent UTI Mixed stress and urge urinary incontinence Family History Mother Heart disease Crohn's disease, colon Father Liver disease Social History Smoking and tobacco/nicotine status: former use of tobacco/nicotine Alcohol intake: current Alcohol intake frequency: few times a week Substance/Drug Use: never Marital status: Current occupational status: disabled Physical Exam Const: COMMON NORMALS: no acute distress, patient oriented x3 and healthy appearing HENMT: COMMON NORMALS: normocephalic and atraumatic HEAD & SCALP: normocephalic and atraumatic Eye: COMMON NORMALS: conjunctivae normal CONJUNCTIVA: Yes conjunctivae normal Neck/C-Spine: COMMON NORMALS: full ROM and supple Chest: COMMONS NORMALS: normal inspection of the chest Resp: COMMON NORMALS: normal respiratory effort, No retractions, No use of accessory muscles and clear to auscultation bilaterally AUSCULTATION: clear to auscultation bilaterally Cardio: COMMON NORMALS: regular rate, regular rhythm and No murmurs present (Cardio) RATE: regular rate RHYTHM: regular rhythm Extremity: COMMON NORMALS: normal to inspection and full ROM Neuro: COMMON NORMALS: patient oriented x3, moves all extremities and no focal motor deficits Psych: COMMON NORMALS: mental status grossly normal, Normal thought process present and cooperative THOUGHT PROCESS: Normal thought process present Skin: COMMON NORMALS: no rashes or lesions noted and no wounds GENERAL SKIN EXAM: no rashes or lesions noted Course Vital Signs: Vital signs: Vital Signs Temperature 98.7 F 03/21/25 18:07 Pulse Rate 86 03/21/25 20:40 Respiratory Rate 18 03/21/25 20:40 Blood Pressure 126/85 03/21/25 20:40 Pulse Oximetry 97 03/21/25 20:40 Oxygen Delivery Me thod Room Air 03/21/25 20:40 MDM - Chest Pain Medical Decision Making Patient presents for chest pain along with palpitation she has been well-appearing here blood work is normal 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 Medical Records I reviewed the patient's medical records. Lab Data I reviewed the patient's lab results. 03/21/25 18:40 03/21/25 18:40 Radiology Impressions Chest X-Ray 03/21/25 18:03 IMPRESSION: No acute findings. Laboratory Results WBC 10.94 10^3/uL (3.29-11.43) 03/21/25 18:40 RBC 5.50 10^6/uL (3.85-5.65) 03/21/25 18:40 Hgb 15.40 g/dL (11.27-16.99) 03/21/25 18:40 Hct 46.8 % (36-47) 03/21/25 18:40 MCV 85.1 fl (85-98) 03/21/25 18:40 MCH 28.0 pg (27-33) 03/21/25 18:40 MCHC 32.9 g/dL (30-55) 03/21/25 18:40 RDW 12.3 % (12.1-15.1) 03/21/25 18:40 Plt Count 395 10^3/cmm (157-399) 03/21/25 18:40 MPV 10.0 fL (7.4-10.4) 03/21/25 18:40 Neut % (Auto) 49.2 % 03/21/25 18:40 Lymph % (Auto) 37.4 % 03/21/25 18:40 [place] % (Auto) 5.1 % 03/21/25 18:40 Eos % (Auto) 7.1 % 03/21/25 18:40 Baso % (Auto) 0.7 % 03/21/25 18:40 Neut # (Auto) 5.38 10^3/uL (1.8-7.7) 03/21/25 18:40 Lymph # (Auto) 4.1 10^3/uL (0.8-4.8) 03/21/25 18:40 [place] # (Auto) 0.6 10^3/uL (0.2-0.9) 03/21/25 18:40 Eos # (Auto) 0.8 10^3/uL (0.0-0.8) 03/21/25 18:40 Baso # (Auto) 0.1 10^3/uL (0.0-0.1) 03/21/25 18:40 Nucleated RBC % (auto) 0 % 03/21/25 18:40 Nucleated RBCs # 0.0 /100WBC 03/21/25 18:40 D-Dimer 0.33 ug/mLFEU (0-0.59) 03/21/25 18:40 Sodium 141 mmol/L (136-145) 03/21/25 18:40 Potassium 4.1 mmol/L (3.5-5.1) 03/21/25 18:40 Chloride 107 mmol/L (98-107) 03/21/25 18:40 Carbon Dioxide 20 mmol/L (22-29) L 03/21/25 18:40 Anion Gap 18.1 (5-19) 03/21/25 18:40 BUN 5 mg/dL (6-20) L 03/21/25 18:40 Creatinine 0.9 mg/dL (0.5-0.9) 03/21/25 18:40 GFR Calculation 72.1 mL/min (90-130) L 03/21/25 18:40 Glucose 99 mg/dL (65-115) 03/21/25 18:40 Calculated Osmolality 289 mOsm/kg (285-295) 03/21/25 18:40 Calcium 9.7 mg/dL (8.5-10.5) 03/21/25 18:40 Total Bilirubin 0.5 mg/dL (0.15-1.2) 03/21/25 18:40 AST 22 U/L (0-32) 03/21/25 18:40 ALT 26 U/L (0-33) 03/21/25 18:40 Alkaline Phosphatase 59 U/L (35-105) 03/21/25 18:40 Troponin T Baseline < 6 ng/L (0-10) 03/21/25 18:40 Total Protein 7.3 g/dL (6.6-8.7) 03/21/25 18:40 Albumin 4.8 g/dL (3.5-5.2) 03/21/25 18:40 Globulin 2.5 g/dL (1.3-4.6) 03/21/25 18:40 Lipase 39 U/L (13-60) 03/21/25 18:40 HCG, Qual Negative (Negative) 03/21/25 18:40 All radiology interpretation(s) finalized by discharge EKG Data EKG 1: I personally reviewed and interpreted this EKG as follows: EKG interpretation date: 03/21/25 EKG interpretation time: 20:15 Interpretation: nsr hr [address] or t wave abnormalities qrs 85 qtc 370 Discharge Plan Discharge Patient Disposition: Home Clinical Impression: Atypical chest pain Condition: Stable Prescriptions: No Action hydroxyzine pamoate 50 mg capsule 50 mg PO TID PRN (Reason: Anxiety) 30 Days Qty: 60 3RF loratadine [Claritin] 10 mg tablet 10 mg PO DAILY bupropion HCl 300 mg tablet extended release 24 hr 300 mg PO DAILY 30 Days Qty: 30 3RF buspirone 10 mg tablet 10 mg PO TID PRN (Reason: anxiety) Qty: 90 3RF nitroglycerin 0.4 mg tablet, sublingual See Rx Instructions .ROUTE .COMPLEX Qty: 25 2RF Dose Instruction: PLACE 1 TABLET UNDER TONGURE EVERY 5 MINUTES NEEDED FOR CHEST PAIN, DO NOT EXCEED 3 DOSES PER EPISODE Rx Instructions: PLACE 1 TABLET UNDER TONGURE EVERY 5 MINUTES NEEDED FOR CHEST PAIN, DO NOT EXCEED 3 DOSES PER EPISODE metoprolol tartrate 25 mg tablet 12.5 mg PO BID Qty: 90 3RF Discharge Orders: Discharge ED (Routine); Ordered 03/21/25 Ordered By: Marilou Baires Referrals: Kathleen Miller FNP [Primary Care Provider, Nurse Practitioner] Discharge Diet: Advance as tolerated Discharge Activity: Resume usual activity Patient Instructions: Heart Palpitations (ED) Print Language: Bengali Coding Level of Care Code ED Analyst [employer] for Bryce Andrea
[2025-03-21 21:18] VITALS: BP 110/85; PULSE 96; RESP 16; O2SAT 95
[2025-03-21 21:22] LABS: Troponin 5 2HR < 6.0 ng/L (0-10); Troponin 5 2HR Delta 0 ABS# (0-10)
== END 2025-03-21 21:20 | disposition home or self-care (01) ==
PROVIDERS: Emergency Provider Emergency Medicine; PCP Nurse Practitioner Family
DX: R07.89 Other chest pain (principal); Z87.891 Personal history of nicotine dependence
CPT/HCPCS: 36415; 71045; 80053; 83690; 84484; 84703; 85025; 85378; 93005; 99285

== ENCOUNTER → 2025-03-25 09:28 | Outpatient (BNVA) | payer MEDICAID, SELFPAY | PROVIDERS: PCP Nurse Practitioner Family; Visit Provider Nurse Practitioner Family | DX: I47.19 Other supraventricular tachycardia (principal); I45.5 Other specified heart block; Z87.891 Personal history of nicotine dependence; I47.10 Supraventricular tachycardia, unspecified | CPT/HCPCS: 36415; 84702; 99214 ==

== ENCOUNTER 2025-04-15 08:02 | Outpatient (CLI) | payer MEDICAID, SELFPAY ==
--- NOTE | 2025-04-15 | ECG_ITS ---
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 Interpretive Statements Lung unchanged pre/post procedure; Intraprocedure shortess of breath; Symptoms resoled by discharge PROCEDURE: At the baseline, the EKG revealed normal sinus rhythm with poor R wave progression.. The baseline heart was 93 bpm with a blood pressue of 153/56 mm of Hg Lexiscan was infused over a period of 20 seconds. A total of 0.4 milligrams of Lexiscan was infused. The stress phase was continued for a total of 5 minutes. Heart rate at the end of the stress phase was 140 bpm with a blood pressure 125/82 mm of Hg. The EKG at the peak infusion revealed no significant changes. Sestamibi was injected 20 seconds after the Lexiscan infusion. Heart rate at the end of the recovery phase was 130 bpm with a blood pressure of 198/83 mm of Hg. CONCLUSION: 1. Tachycardia response to LexiScan infusion 2. No LexiScan induced chest pain or cardiac arrhythmia 3. Normal blood pressure and heart rate response 4. Sestamibi/sestamibi perfusion scan pending; see separate report. Electronically Signed On 04-15-2025 22:00:44 CDT by Amita Trevino M.D. [email or web address]
[2025-04-15 08:14] VITALS: BMI 34.4
--- NOTE | 2025-04-15 08:16 | NMCV_ITS ---
NM cheryl perf SPECT r/s* [id number] Tata Moore Age: 34 Gender: F : 1990 Exam Date: 04/15/2025 09:01 Ordering Phys: Nani Palomares NP Technologist: KOMAL Bar Exam Location: [facility] Indications: cp STRESS TEST Please see separate stress test report in [facility] for full findings IMAGE PROTOCOL Rest/Stress 1 Lexiscan Day Radiopharmaceutical Dose (mCi) Administration Site Administered by Rest: Tc-99m 10.5 IV Emelyn Cerrato, PAPER ROLLER Sestamibi Stress:Tc-99m 32.8 IV Emelyn Blossom, PAPER ROLLER Sestamibi Rest: 15-Apr-2025 60 Discovery 630 Stress: 15-Apr-2025 30 Discovery 630 0.4mg Lexiscan. Images obtained in supine and prone position. SPECT RESULTS Technical Quality: Good Raw Data Analysis: Breast attenuation Image Corrections: No attenuation or motion correction applied Summed Stress Score: 8 Summed Rest Score: 5 Summed Difference Score: 3 PERFUSION FINDINGS Small to moderate area of minimal to moderately decreased tracer uptake involving the mid inferolateral, apical lateral, apical inferior, apical septal and LV apex. Some reversibility was noted in the mid inferolateral , apical inferior and apical lateral regions. FUNCTIONAL RESULTS (calculated via Gated SPECT) Stress Image LV EF (%): 81 Stress EDV (mL):43 TID: 0.75 Stress ESV (mL):8 FUNCTIONAL FINDINGS: Segmental wall motion analysis revealing no gross wall motion abnormalities IMPRESSIONS 1. Myocardial perfusion imaging revealing small to moderate area of minimal to moderate decrease tracer uptake involving the apical and inferolateral regions with some reversibility, suggesting myocardial scarring with ischemia in the distribution of the left circumflex artery. 2. Normal LV ejection fraction of 81%. 3. LV wall motion analysis revealing no gross wall motion abnormalities. 4. Normal LV volume No similar previous studies are available for comparison Dr Amita Trevino MD FAC (Electronically Signed) Final Date: 15 April 2025 14:24 S
--- NOTE | 2025-04-15 08:17 | PC.NURSE ---
pt refused test. waiver signed and sent to HIM for scanning
--- NOTE | 2025-04-15 09:51 | PC.NURSE ---
pt unable to complete exercise mibi due to high heart rate and low tolerance. nurse called physican and got the ok to switch to chemical stress test
[2025-04-15] MEDS: regadenoson 0.4 Mg/5 ml Syringe IVP (10:12)
[2025-04-15 10:21] VITALS: BP 119/83; PULSE 130
== END 2025-04-15 08:03 | disposition home or self-care (01) ==
PROVIDERS: PCP Nurse Practitioner Family; Visit Provider Nurse Practitioner Family
DX: R00.2 Palpitations (principal); R93.1 Abnormal findings on diagnostic imaging of heart and coronary circulation; R00.0 Tachycardia, unspecified
CPT/HCPCS: 36415; 78452; 93017; 96374; A9500; J2785

== ENCOUNTER → 2025-04-27 07:45 | Outpatient (BNVA) | payer MEDICAID, SELFPAY | PROVIDERS: PCP Nurse Practitioner Family; Visit Provider Nurse Practitioner Family | DX: I47.10 Supraventricular tachycardia, unspecified (principal); I10 Essential (primary) hypertension; R00.2 Palpitations; R94.39 Abnormal result of other cardiovascular function study; Z95.818 Presence of other cardiac implants and grafts; Z87.891 Personal history of nicotine dependence; R07.9 Chest pain, unspecified; I45.5 Other specified heart block | CPT/HCPCS: 93298; 99214 ==

== ENCOUNTER 2025-05-12 10:37 | Outpatient (CLI) | payer MEDICAID, SELFPAY ==
--- NOTE | 2025-05-12 11:15 | USCV_ITS ---
Tata Moore Age: 34 Gender: F : 1990 Exam Date: 05/12/2025 11:14 Ordering Phys: Nani Palomares NP Technologist: KENYATTA Exam Location: [facility] Indication: Aortic Valve Regurg BP: 110 / 78 HR: 69 Rhythm: Sinus Technical Quality: Adequate MEASUREMENTS (Male / Female) Normal Values 2D ECHO LV Diastolic Diameter PLAX 4.1 cm 4.2 - 5.9 / 3.9 - 5.3 cm IVS Diastolic Thickness 0.9 cm 0.6 - 1.0 / 0.6 - 0.9 cm IVS Systolic Thickness 1.5 cm LVPW Diastolic Thickness 1.1 cm 0.6 - 1.0 / 0.6 - 0.9 cm LVPW Systolic Thickness 1.5 cm LVOT Diameter 2.1 cm LV Ejection Fraction 2D Teich 71.8 % LV Ejection Fraction MOD 4C 64.2 % LV Ejection Fraction MOD 2C 65.7 % LV Ejection Fraction 2C AL 65.4 % LA Diameter 2.8 cm RA Systolic Volume 4C AL 20.5 ml RA Systolic Volume 4C MOD 19.5 ml LA Sys Volume AL 22.2 cm cubed LA Sys Volume Index AL 11.6 cm cubed/m squared Aorta at Sinotubular Diameter 2.2 cm IVC Diameter 1.9 cm M-MODE LA Ao Ratio MM 1.2 AV Cusp Separation MM 2.0 cm DOPPLER AV Peak Velocity 100.0 cm/s LVOT Peak Velocity 84.0 cm/s AV Area Cont Eq vti 2.9 cm squared AV Area Cont Eq pk 2.8 cm squared MV Peak Velocity 111.0 cm/s MV Area PHT 4.7 cm squared Mitral E to A Ratio 1.2 TR Peak Velocity 82.0 cm/s TR Peak Gradient 2.7 mmHg TV Peak E Velocity 79.0 cm/s PV Peak Velocity 85.0 cm/s FINDINGS Left Ventricle Left ventricle is normal in size. LV systolic function is normal with EF of 60-65%. No regional wall motion abnormalities are seen. Right Ventricle Normal in size and function Right Atrium Normal in size Left Atrium Normal in size Mitral Valve Structurally normal mitral valve. Trace mitral regurgitation. Aortic Valve Structural normal aortic valve. No significant stenosis or regurgitation Tricuspid Valve Insufficient TR jet to calculate RVSP Pulmonic Valve Not well visualized Pericardium Normal Aorta Normal in size IVC Appears to be normal CONCLUSIONS LV systolic function is normal with EF of 60-65% Trace mitral regurgitation Brayan Summers MD (Electronically Signed) Final Date: 13 May 2025 07:53 S
== END 2025-05-12 10:38 | disposition home or self-care (01) ==
LOC: RAD 10:38
PROVIDERS: PCP Nurse Practitioner Family; Visit Provider Nurse Practitioner Family
DX: I47.10 Supraventricular tachycardia, unspecified (principal)
CPT/HCPCS: 93306

== ENCOUNTER 2025-05-13 05:53 | Outpatient (CLI) | payer MEDICAID, SELFPAY ==
[2025-05-13] VITALS (17 sets, daily range): BP systolic 88–148; BP diastolic 53–100; PULSE 50–73; RESP 14–19; TEMP 37; O2SAT 93–98; BMI 34.2
[2025-05-13 06:42] LABS: Hematocrit 43.2 % (36-47); Hemoglobin 14.40 g/dL (11.27-16.99); Mean Corpuscular HGB Conc 33.3 g/dL (30-55); Mean Corpuscular Hemoglobin 28.2 pg (27-33); Mean Corpuscular Volume 84.5 fl (85-98); Nucleated Red Blood Cells % 0 %; Platelet Count 362 10^3/cmm (157-399); Red Blood Count 5.11 10^6/uL (3.85-5.65); White Blood Count 11.93 10^3/uL (3.29-11.43)
[2025-05-13 06:58] LABS: HCG, Serum Qual Negative (Negative)
[2025-05-13 07:10] LABS: Anion Gap 16.8 (5-19); Blood Urea Nitrogen 9 mg/dL (6-20); Calcium 8.9 mg/dL (8.5-10.5); Carbon Dioxide 20 mmol/L (22-29); Chloride 107 mmol/L (98-107); Creatinine Clr Calc Pharmacy 111.0167; Glucose 95 mg/dL (65-115); Osmolality Calculated 288 mOsm/kg (285-295); Potassium 3.8 mmol/L (3.5-5.1); Sodium 140 mmol/L (136-145)
--- NOTE | 2025-05-13 07:15 | XACV_ITS ---
Exam Room: 2 Ht: 155 cm Wt: 82 kg BSA: 1.92 m2 Gender: Female : 1990 Any Known Allergies: Other Exam Priority: Routine Procedure(s): Procedure Description: Diagnostic procedure Procedure Description: Left Heart Catheterization Procedure Description: Left ventriculography Procedure Description: Coronary Angiography Diagnostic Cath Status: Elective Diagnostic Findings * INDICATION: Chest pain/abnormal stress test. 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 * No disease noted in the Left Main, Left Anterior Descending, Right, or Circumflex coronary arteries. Myocardial bridging seen in the mid LAD. * Coronary angiography shows right dominance. Conclusions 1. No disease noted in the Left Main, Left Anterior Descending, Right, or Circumflex coronary arteries. Myocardial bridging seen in the mid LAD. 2. Normal left ventricular systolic function. Ejection fraction of 55%. Recommendations * Aggressive risk factor control. Outpatient cardiology follow up in 2 weeks. Interventional RX Recommendation: medical therapy and/or counseling Diagnostic RX Recommendation: medical therapy and/or counseling Anticoagulation: Heparin Ventriculography Ejection Fraction: 55.0 % Pressures Phase:Rest AO : 115 / 72 ( 91 ) @ 8:43:00 AM 115 / 72 ( 92 ) @ 8:43:00 AM LV : 124 / -7 / 17 @ 8:42:00 AM 114 / 0 / 19 @ 8:43:00 AM 112 / 0 / 19 @ 8:43:00 AM Valves Phase:DefaultPhase AV : 0.0 @ 7:52:34 AM AV Mean Gradient: 0.0 @ 7:52:34 AM Clinical Evaluation EBL: 5mL-10mL Procedural Details Pre-Procedure Time Out. Identified patient by full name and date of as verbalized by the patient/guarantor. Does the consent match the physician's order: Yes. Accurate & Complete Informed Consent: Yes. Inpatient/Outpatient History & Physical on Chart: Yes. If H&P is completed, is and addenduem needed: No; If yes, is the addendum complete: N/A. Visualize and Verify Site with Patient/Guarantor: N/A. Relevant Radiology Images available: Yes. Pre-op teaching completed and patient verbalized understanding. The risks, benefits, and alternatives of sedation and/or procedure were discussed by physician. The patient agrees to continue. Procedure started. [facility] Clinical Fraility Score: 3: Managing Well. 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 Chest Pain Symptom Assessment: Typical Angina Symptoms. Correct patient, site and procedure confirmed by cath team. Current diagnosis: Chest Pain. PERRLA. Strong, equal hand manager hiv bilaterally. Lungs clear x 5 lobes. IV Site on Arrival: 20 gauge in the right anticubital. IV Fluids: 0.9% NaCl at KVO. 0 mL infused prior to test lab technician. Pre Procedural Pulses: bilateral dorsalis pedis was Doppled. Pre Procedural Pulses: bilateral posterior tibial was Doppled. Pre Procedural Pulses: bilateral radial was Doppled. Oxygen started at 2liters/min via nasal canula. right groin was prepped with chloroprep then draped in the usual sterile fashion. right radial was prepped with chloroprep then draped in the usual sterile fashion. Physician notified. Baseline sample Acquired. HR: 65 BPM. Current Diagnosis : Chest Pain. Physician arrived. Physician scrubbed in. Immediate Pre-Procedure Time Out. Correct Patient: Yes; Correct Procedure: Yes; Correct Site: Yes; Correct Patient Position: Yes; Correct Supplies: Yes; Dried Flammable Prep: Yes; Blood Products Available: N/A;. Lidocaine 1% infiltrated to the right radial. Arterial access obtained. A 5 b[place] TIG catheter in over wire. Multiple views taken of left coronary artery. Catheter redirected to the RCA. Multiple views taken of right coronary artery. Catheter removed over the exchange wire. A 5 b[place] Angled Pig catheter in over wire. EDP Sample taken: LV 124/-8,17; HR: 75 BPM; SpO2: 96%. LV gram performed in MCGINNIS @ 10 mL/second for a total of 30 mL. EDP Sample taken: LV 114/0,19; HR: 87 BPM; SpO2: 95%. Pullback taken: LV 112/0,19; AO 115/72(91); Mean: 0mmHg, Peak to Peak: 0mmHg, SEP: 7sec/min; HR: 74 BPM; SpO2: 95%. Catheter removed over the exchange wire. Vital chart was stopped. A TR Band was successful obtaining hemostatsis at the Right Radial artery insertion site. Post Procedure: Pulses reassessed and unchanged. PERRLA. Strong, equal hand manager hiv bilaterally. No VTE prophylaxis required. Medication's Wasted: Lidocaine 1% = 18 mL. Medication's Wasted: Nitro = 49.8 mcg. Medication's Wasted: Other = Fentanyl 75 mg. Total IV fluids: 20 mL. Post-op diagnosis: Normal Coronaries. Complications: None. Estimated blood loss: 5mL-10mL. Responsiveness - Normal response to verbal stimuli; alert and oriented, PERRLA. Airway - Unaffected, no intervention required; spontaneous ventilation. Circulation: W/N/L, pulses unchanged. Nausea/Vomiting: No. Procedure completed. Patient transferred by wheelchair to CPRU. Access Site Site: Right Radial artery Sheath Size: 6 Fr Hemostasis Method: TR Band Hemostasis Success: Successful Procedure Medications Start: 7:29 AM Stop: 7:29 AM Medication: Versed 1 mg and Fentanyl 25 mcg Amount: 1 Route: I.V. Start: 7:33 AM Stop: 7:33 AM Medication: Versed Amount: 1 mg Route: I.V. Start: 7:35 AM Stop: 7:35 AM Medication: Nitrogylcerin Amount: 200 mcg Route: I.A. Start: 7:35 AM Stop: 7:35 AM Medication: 0.9% Saline Amount: 250 ml Route: I.V. bolus Start: 7:36 AM Stop: 7:36 AM Medication: Heparin Amount: 5000 units Route: I.V. I, the attending physician, have reviewed and verified all procedure medications. Yes, all medications given per verbal order History/Risk Factors Hypertension: Yes Dyslipidemia: No Peripheral Arterial Disease (PAD): No Myocardial Infarction ([place]): No Obesity: No Renal Disease: No Tobacco Use: Former Prior Interventions PCI: No CABG: No Valve Surgery: No Report Signatures Finalized by Brayan Summers MD on 05/13/2025 07:57 AM
--- NOTE | 2025-05-13 07:29 | P.HPUD_ITS ---
Surgery/Procedure H&P Update DATE OF PROCEDURE: May 13, 2025 DATE H&P PERFORMED: 04/27/25 H&P UPDATE INFORMATION: I have reviewed H&P completed within last 30 days, I have examined patient prior to procedure and No changes to prior documentation PREOP DIAGNOSIS: Chest pain/ abnormal stress test PRIMARY INDICATION FOR PROCEDURE: Chest pain/ abnormal stress test PLANNED PROCEDURE: Operation Date: 05/13/25 07:00 Proposed Procedures p Cardiac Catheterization - [facility] w/wo LC & Coros(Left) - Brayan Summers M.D Possible percutaneous coronary intervention PATIENT REASSESSED PRIOR TO SEDATION, WITH NO CHANGE NOTED: Yes PHYSICAL EXAM: alert, oriented x 3, clear to auscultation bilaterally and regular rate & rhythm AIRWAY EVAL/ANESTHESIA PLAN: normal airway, ASA III, Local Anesthesia, Risks, benefits & alternatives of sedation and/or procedure discussed and Patient agrees to continue as planned ADDITIONAL INFORMATION: Moderate sedation
--- NOTE | 2025-05-13 09:10 | PC.NURSE ---
TRB Air Removed 1 ml air removed from TRB at this time. No hematoma or bleeding noted. Will monitor. Denies pain.
--- NOTE | 2025-05-13 09:55 | PC.NURSE ---
TRB Removed TRB removed at this time. No s/s of bleeding or hematoma noted.
--- NOTE | 2025-05-13 10:58 | PC.NURSE ---
Pt discharged Discharge instructions given to pt, verbalized understanding. Pt taken to lobby and discharged home with family via private vehicle.
== END 2025-05-13 05:54 | disposition home or self-care (01) ==
PROVIDERS: PCP Nurse Practitioner Family; Visit Provider Internal Medicine
DX: R94.39 Abnormal result of other cardiovascular function study (principal); R07.9 Chest pain, unspecified; I10 Essential (primary) hypertension; Z87.891 Personal history of nicotine dependence; R00.2 Palpitations
CPT/HCPCS: 36415; 80048; 84703; 85025; 93458; 99152; 99153; C1769; C1887; C1894; J1644; J2250; J3010; J3490; J7030; J9999; Q0163; Q9967

== ENCOUNTER → 2025-06-13 12:17 | Outpatient (BNVA) | payer MEDICAID, SELFPAY | PROVIDERS: PCP Nurse Practitioner Family; Visit Provider Nurse Practitioner Family | DX: I47.10 Supraventricular tachycardia, unspecified (principal); I49.5 Sick sinus syndrome; R94.39 Abnormal result of other cardiovascular function study; I20.89 Other forms of angina pectoris; R00.2 Palpitations; R42 Dizziness and giddiness; G47.30 Sleep apnea, unspecified; F32.A Depression, unspecified; E78.00 Pure hypercholesterolemia, unspecified; Z87.891 Personal history of nicotine dependence | CPT/HCPCS: 36415; 80048; 84439; 84443; 85025; 99213 ==

== ENCOUNTER → 2025-06-28 11:30 | Outpatient (BNVA) | payer MEDICAID, SELFPAY | PROVIDERS: PCP Nurse Practitioner Family; Visit Provider Internal Medicine | DX: Z45.09 Encounter for adjustment and management of other cardiac device (principal) | CPT/HCPCS: 93298 ==

== ENCOUNTER → 2025-08-24 13:42 | Outpatient (BNVA) | payer MEDICAID, SELFPAY | PROVIDERS: PCP Nurse Practitioner Family; Visit Provider Internal Medicine Cardiovascular Disease | DX: Z45.09 Encounter for adjustment and management of other cardiac device (principal) | CPT/HCPCS: 93298 ==

== ENCOUNTER → 2025-11-01 13:18 | Outpatient (BNVA) | payer MEDICAID, SELFPAY | PROVIDERS: PCP Nurse Practitioner Family; Visit Provider Internal Medicine | DX: R07.9 Chest pain, unspecified (principal); R94.31 Abnormal electrocardiogram [ECG] [EKG]; I47.19 Other supraventricular tachycardia; Z95.818 Presence of other cardiac implants and grafts | CPT/HCPCS: 93005; 99214 ==